=== PATIENT | male | born 1965 | race Caucasian/White ===

== ENCOUNTER 2019-12-09 11:06 | Observation (INO) | payer OTHER, SELFPAY ==
--- NOTE | 2019-12-09 11:32 | RAD ---
EXAM: CHEST ONE VIEW HISTORY: Dyspnea. Patient fell a popping sensation in head and the left side of face went numb. COMPARISON: None FINDINGS: The cardiac silhouette and pulmonary vasculature are within normal limits. The lungs are clear. The o sseous structures are intact. IMPRESSION: No acute cardiopulmonary process.
[2019-12-09 11:40] LABS: #Basophils 0.1 thou/uL (0.0-0.2); #Eosinphils 0.2 thou/uL (0.0-0.7); #Lymphocytes 1.6 thou/uL (1.20-3.40); #Monocytes 0.6 thou/uL (0.11-0.59); #Neutrophils 3.5 thou/uL (1.40-6.50); %Basophils 1.1 % (0.0-1.0); %Eosinophils 3.2 % (0.0-10.0); %Lymphocytes 27.4 % (21.0-51.0); %Monocytes 9.2 % (0.0-10.0); %Neutrophils 59.1 % (42.0-75.0); Hemoglobin 14.3 g/dL (14.0-18.0); Mean Corpuscular HGB CONC 32.9 g/dL (32.0-36.0); Mean Corpuscular Hemoglobin 29.4 pg (27.0-31.0); Mean Corpuscular Volume 89.3 fL (78.0-98.0); Mean Platelet Volume 7.8 fL (7.4-10.4); Platelet Count 223 thou/uL (130-400); Red Blood Cell (RBC) Count 4.87 mill/uL (4.70-6.10)
--- NOTE | 2019-12-09 12:03 | CT ---
CT BRAIN WITHOUT CONTRAST: HISTORY: Headache, left-sided facial numbness FINDINGS: No evidence of acute infarct, hemorrhage, midline shift or abnormal extra-axial fluid collections is seen. The ventricular size is appropriate and the basilar cisterns are patent. The bony calvarium is intact. The mastoid air cells are well aerated. There is mucosal disease in the left ethmoid sinus es. IMPRESSION: No CT evidence of acute intracranial process.
[2019-12-09] MEDS ORDERED: Acetaminophen 500 MG TAB ONE (12:07)
[2019-12-09] MEDS ORDERED: Metoclopramide HCl 10 MG/2 ML VIAL ONE (12:08)
[2019-12-09] MEDS ORDERED: diphenhydrAMINE 50 MG/ML VIAL ONE (12:08)
[2019-12-09 13:10] LABS: ALT (SGPT) 36 U/L (8-55); AST (SGOT) 24 U/L (5-34); Albumin 3.9 g/dL (3.5-5.0); Alkaline Phosphatase 58 U/L (40-110); Anion Gap 15 mmol/L (10-20); BUN (Urea Nitrogen) 24 mg/dL (8.4-25.7); Bilirubin, Total 0.5 mg/dL (0.2-1.2); Calc. Creatinine Clearance 0 mL/min (70-130); Calcium 8.8 mg/dL (7.8-10.44); Carbon Dioxide 21 mmol/L (22-29); Chloride 103 mmol/L (98-107); Estimated GFR-MDRD 60; Globulin 3.1 g/dL (2.4-3.5); Glucose 268 mg/dL (70-105); Potassium 4.3 mmol/L (3.5-5.1); Sodium 135 mmol/L (136-145)
[2019-12-09 15:08] VITALS: BMI 32.3
[2019-12-09] MEDS ORDERED: hydrALAZINE 20 MG/ML VIAL SLOW IVP PRN (15:53)
[2019-12-09] MEDS ORDERED: HumaLOG 300 UNITS/3 ML VIAL SC PRN (15:54)
[2019-12-09] MEDS ORDERED: Dextrose 50% Abboject 50 ML SYRINGE SLOW IVP PRN (15:54)
[2019-12-09] MEDS ORDERED: Dextrose 5% in Water 1,000 ML IV PRN (15:54)
--- NOTE | 2019-12-09 16:47 | ULT ---
ULTRASOUND DOPPLER DUPLEX CAROTID: DATE: 12/09/2019 HISTORY: 54-year-old male with TIA TECHNIQUE: Grayscale, color-flow, and spectral analysis, of major arteries of neck. FINDINGS: RIGHT: Atherosclerotic plaque:Mild at carotid bulb. Peak systolic and end diastolic velocities: CCA:90 cm/s, 20 cm/s ICA:65 cm/s, 20 cm/s ICA/CCA ratio:0.8 Vertebral artery flow:Antegrade LEFT: Atherosclerotic plaque:Mild at carotid bulb. Peak systolic and end diastolic velocities: CCA:85 cm/s, 15 cm/s ICA:65 cm/s, 25 cm/s ICA/CCA ratio:0.7 Vertebral artery flow:Antegrade IMPRESSION: 1) mild atherosclerosis of bilateral proximal internal carotid arteries. 2. No evidence of hemodynamically significant stenosis.
[2019-12-09] MEDS: metFORMIN 500 MG TAB PO SCH (17:52)
[2019-12-09] MEDS ORDERED: Atorvastatin Calcium 40 MG TAB PO SCH (21:00)
--- NOTE | 2019-12-09 22:38 | HP ---
CHIEF COMPLAINT: Left facial numbness. HISTORY OF PRESENT ILLNESS: The patient is a 54-year-old male, with past medical history of hypertension, hyperlipidemia, and diabetes mellitus, who has been out of his blood pressure medications for the past week. He presented to the hospital after a sudden onset of left facial numbness earlier today. The patient stated that he heard a loud pop in his head and then felt numbness over the left side of his face that lasted about 50 minutes. EMS was called, and the patient was brought to the ER and his systolic blood pressure was over 200. He denies any weakness, numbness, speech difficulty, or vision abnormalities at this time. CT scan of the brain without contrast obtained in the ER did not show any abnormalities. REVIEW OF SYSTEMS: Negative, except as noted in HPI. PAST MEDICAL HISTORY: As noted above. SURGICAL HISTORY: Includes ablation for tachycardia. SOCIAL HISTORY: The patient is a current smoker, but denies alcohol or illicit drug use. ALLERGIES: THE PATIENT IS ALLERGIC TO IODINE. PHYSICAL EXAMINATION: GENERAL: The patient is alert and oriented x3. HEENT: Head is normocephalic and atraumatic. Extraocular muscles are intact. NECK: Supple. CHEST: Clear to auscultation bilaterally CARDIOVASCULAR EXAMINATION: Reveals normal S1, S2. No murmurs, rubs, or gallops. Regular rate and rhythm. ABDOMEN: Soft, nontender, and nondistended. NEUROLOGIC EXAMINATION: Revealed normal cranial nerves 2 through 12 and normal motor and sensory function. ASSESSMENT: 1. Transient ischemic attack. 2. Hypertensive urgency. 3. Diabetes mellitus, type 2. 4. Hyperlipidemia. PLAN: The patient will be placed in neuro telemetry. Start aspirin 325 mg orally daily and atorvastatin 40 mg orally nightly. We will allow permissive hypertension and treat with IV hydralazine 10 mg q.4 hours as needed for systolic blood pressure greater than 220 or diastolic greater than 120. Check lipid profile and hemoglobin A1c. Start low insulin lispro sliding scale for diabetes. The patient takes metformin at home, which we will continue. Lovenox for DVT prophylaxis. We will check echocardiogram and ultrasound of the carotid and we will consult Neurology. No evidence of any deficits at this time, so I will leave the decision to pursue MRI to the neurologist. Job ID: [id number]
[2019-12-10 04:26] LABS: #Basophils 0.1 thou/uL (0.0-0.2); #Eosinphils 0.3 thou/uL (0.0-0.7); #Monocytes 1.1 thou/uL (0.11-0.59); #Neutrophils 5.4 thou/uL (1.40-6.50); %Basophils 1.1 % (0.0-1.0); %Eosinophils 2.7 % (0.0-10.0); %Lymphocytes 30.2 % (21.0-51.0); %Monocytes 10.9 % (0.0-10.0); %Neutrophils 55.1 % (42.0-75.0); Hemoglobin 14.6 g/dL (14.0-18.0); Mean Corpuscular HGB CONC 33.5 g/dL (32.0-36.0); Mean Corpuscular Volume 89.6 fL (78.0-98.0); Mean Platelet Volume 7.7 fL (7.4-10.4); Platelet Count 227 thou/uL (130-400); RBC Distribution Width 12.1 % (11.5-14.5); Red Blood Cell (RBC) Count 4.87 mill/uL (4.70-6.10); White Blood Cell (WBC) Count 9.8 thou/uL (4.8-10.8)
[2019-12-10 05:34] LABS: Hemoglobin A1c 7.8 % (4.0-6.0)
[2019-12-10 05:41] LABS: Anion Gap 14 mmol/L (10-20); BUN (Urea Nitrogen) 17 mg/dL (8.4-25.7); Calc. Creatinine Clearance 116 mL/min (70-130); Calcium 8.8 mg/dL (7.8-10.44); Carbon Dioxide 20 mmol/L (22-29); Cardiac Risk 5.9 (Less than 4.5); Chloride 106 mmol/L (98-107); Cholesterol 147 mg/dl (< 200 Desired); Estimated GFR-MDRD 69; Glucose 156 mg/dL (70-105); HDL Cholesterol 25 mg/dL (>60 Neg Risk); LDL Cholesterol, Calculated 73 mg/dL; Potassium 3.7 mmol/L (3.5-5.1); Sodium 136 mmol/L (136-145); Triglycerides 243 mg/dL (Less than 150)
[2019-12-10] MEDS ORDERED: Aspirin 325 mg Enteric Coated Tablet PO SCH (09:00)
[2019-12-10] MEDS ORDERED: FLU VACC QS2020-21(6MOS UP)/PF 60 MCG/0.5 ML SYRINGE IM ONE (09:00)
[2019-12-10] MEDS ORDERED: Magnevist 469MG/ML 20 ML VIAL ONE (09:00)
[2019-12-10] MEDS ORDERED: Enoxaparin Sodium 40 MG/0.4 ML SYRINGE SC SCH (09:00)
[2019-12-10] MEDS: metFORMIN 500 MG TAB PO SCH (09:13)
--- NOTE | 2019-12-10 11:43 | CON ---
NEUROLOGY CONSULTATION DATE OF CONSULTATION: 12/10/2019 REASON FOR CONSULTATION: Transient ischemic attack. HISTORY OF PRESENT ILLNESS: Mr. Marcelo Medina is a 54-year-old male with medical history significant for hypertension, hyperlipidemia, diabetes, presented to the emergency room with left facial numbness. Per patient, he has been out of his blood pressure medicine for 5 days because there was some confusion with the prescription and came to the emergency room because he was at work when he felt his left side of his face became numb, and he heard a loud pop in his head. The episode lasted for about 15 minutes. EMS were called and he was brought to the emergency room with a systolic blood pressure was over 200. The patient denies any focal weakness, focal paresthesias, nausea, vomiting, headache, chest pain, abdominal pain, problem with vision, swallowing or speech. Head CT was done in the emergency room, which was negative for acute intracranial pathology. He was admitted for stroke workup. He was given aspirin and was admitted for stroke workup. REVIEW OF SYSTEMS: All 14 systems were reviewed and were negative except the pertinent positive and negative mentioned in the HPI. PAST MEDICAL HISTORY: Hypertension, hyperlipidemia, and diabetes mellitus. PAST SURGICAL HISTORY: Ablation for tachycardia. SOCIAL HISTORY: The patient is a smoker. He denies alcohol or illegal drug use. ALLERGIES: IODINE. PHYSICAL EXAMINATION: VITAL SIGNS: Blood pressure 171/104 , pulse 80, and respiratory rate 18. CVS: Regular rate and rhythm. CHEST: Clear. ABDOMEN: Soft. NECK: Supple. NEUROLOGICAL: Mental status, the patient is alert and oriented to person, place, and time. Recent and remote memory intact. Fund of knowledge is appropriate. Speech is clear. Cranial nerves 2 through 12 intact. Motor, muscle tone and bulk are normal. Strength 5/5 bilaterally. Sensory intact. Gait deferred due to patient's safety reason. DATA REVIEWED: I reviewed the head CT which was negative for acute intracranial pathology. MRI reviewed and was negative for acute intracranial pathology. ASSESSMENT AND PLAN: Mr. Marcelo Medina is a 54-year-old male with history significant for hypertension, hyperlipidemia, and diabetes, presented with an episode of left facial numbness, which resolved on its own, most likely transient ischemic attack in the setting of hypertensive emergency. MRI of the brain to rule out acute intracranial process reviewed and was negative for acute intracranial pathology.. Continue aspirin and high-intensity statin for secondary stroke prevention. Permissive control of blood pressure at this time. Strict control of blood glucose. Check hemoglobin A1c, fasting lipid profile, and TSH. Telemetry to rule out arrhythmia. 2D echo did not reveal any thrombus or PFO. Carotid Dopplers to check for hemodynamically significant stenosis is negative. Neuro checks every 4 hours. Continue home medications. PT/OT. Continue medical management per primary team. Discussed in detail with the patient and also during MDR rounds. Thank you for the consult. Job ID: [id number] JERONIMO
[2019-12-10 11:48] VITALS: BP 171/104; TEMP 98.2
[2019-12-10 11:56] LABS: SARS-CoV-2 MS2 Positive; SARS-CoV-2 N Gene Negative; SARS-CoV-2 S Gene Negative; SARS-CoV-2 by NAA Not Detected (NotDetected); SARS-CoV-2 orf1ab Negative
--- NOTE | 2019-12-10 14:00 | MRI ---
MRI BRAIN WITH AND WITHOUT CONTRAST: Date: 12/10/2019 INDICATION: Seizure. Assess for stroke. FINDINGS: Ventricles have normal size and position. No evidence of restricted diffusion. No evidence of acute i nfarct. No evidence of mass or edema. There is periventricular white matter intensities consistent wi th mild chronic ischemic white matter change. No abnormal enhancement. Hippocampal formations appear symmetric on the coronal FLAIR sequence. The intracranial internal carotid arteries and cerebral arteries demonstrate flow-voids. Mucosal edema in the right maxillary sinus is noted. IMPRESSION: 1. Mild chronic ischemic white matter change. 2. No evidence of acute infarct or other acute process. POS: MIKAL
[2019-12-10] MEDS ORDERED: Lisinopril 20 MG TAB PO SCH (14:45)
[2019-12-10] MEDS ORDERED: Hydrochlorothiazide 25 MG TAB PO SCH (14:45)
--- NOTE | 2019-12-11 03:29 | DIS ---
DATE OF ADMISSION: 12/09/2019 DATE OF DISCHARGE: 12/10/2019 DISCHARGE DIAGNOSES: 1. Transient ischemic attack secondarily to #2. 2. Hypertension, labile. 3. Hyperlipidemia. 4. Diabetes mellitus type 2. CONSULTATIONS: Dr. Carrillo with Neurology Service. PERTINENT LABORATORY AND X-RAY FINDINGS: Hemoglobin A1c 7.8, total cholesterol 147, triglycerides 243, HDL 25, LDL 73. CBC within normal limits. COVID-19 PCR not detected, 12/09/2019. CT of the brain without contrast dated 12/09/2019, showed no acute intracranial process. Portable chest x-ray dated 12/09/2019, showed no acute cardiopulmonary process. Carotid Doppler study dated 12/09/2019, showed no hemodynamically significant stenosis. MRI of the brain dated 12/10/2019, showed no acute intracranial process. 2D transthoracic echocardiogram dated 12/10/2019, showed ejection fraction of 55% to 60%. Diastolic dysfunction noted. HOSPITAL COURSE: The patient was observed on the stroke unit after initially presenting with left facial paresthesias and numbness with associated uncontrolled hypertension. The patient underwent general stroke protocol with essentially negative findings. The patient was resumed on his regular outpatient blood pressure regimen with overall clinical stabilization. The patient was evaluated by the Neurology Service with recommendations for risk factor modification and control of the blood pressure. I have examined the patient at the time of discharge and discussed followup instructions. The patient verbalizes understanding and agreement, ready for discharge on 12/10/2019. DISCHARGE MEDICATIONS: 1. Lipitor 40 mg p.o. daily. 2. Glipizide 10 mg p.o. b.i.d. 3. Metformin 1000 mg p.o. b.i.d. 4. Hydrochlorothiazide 25 mg p.o. daily. 5. Lisinopril 40 mg p.o. daily. 6. Metoprolol tartrate 25 mg p.o. b.i.d. 7. Enteric-coated aspirin 81 mg p.o. daily. FOLLOWUP: The patient may follow up with his primary care provider, Dr. Blade Gardiner in [place], [place]. CONDITION ON DISCHARGE: Stable. ACTIVITY: Ad-avelino. DIET: Heart healthy and ADA. CODE STATUS: Full. DISPOSITION: To home, 12/10/2019. Job ID: [id number]
[2019-12-11] MEDS ORDERED: FLU VACC QS2020-21(6MOS UP)/PF 60 MCG/0.5 ML SYRINGE IM ONE (08:30)
--- NOTE | 2019-12-20 13:01 | EKG ---
Test Reason : Blood Pressure : / mmHG Vent. Rate : 086 BPM Atrial Rate : 086 BPM P-R Int : 240 ms QRS Dur : 086 ms QT Int : 380 ms P-R-T Axes : 048 036 041 degrees QTc Int : 454 ms Sinus rhythm with 1st degree A-V block Low voltage QRS Borderline ECG Confirmed by MARBELLA KESSLER, ZORAIDA ([id number]), news editor GILLIAN OTT ([id number]) on 12/20/2019 1:00:47 PM Referred By: SHARER Confirmed By:ZORAIDA TYSON MD
== END 2019-12-10 15:24 | disposition home or self-care (01) ==
LOC: ERS 11:06 → 2SE 14:03
PROVIDERS: ADMIT Internal Medicine; ATTEND Internal Medicine
DX: G45.9 Transient cerebral ischemic attack, unspecified (principal); I16.0 Hypertensive urgency; I10 Essential (primary) hypertension; E11.9 Type 2 diabetes mellitus without complications; E78.5 Hyperlipidemia, unspecified; E78.00 Pure hypercholesterolemia, unspecified; F17.290 Nicotine dependence, other tobacco product, uncomplicated; Z79.82 Long term (current) use of aspirin; Z79.84 Long term (current) use of oral hypoglycemic drugs; Z79.899 Other long term (current) drug therapy; Z20.828 Contact with and (suspected) exposure to other viral communicable diseases; Z88.8 Allergy status to other drugs, medicaments and biological substances
CPT/HCPCS: 36415; 36416; 70450; 70553; 71045; 80048; 80053; 80061; 83036; 84484; 85025; 87635; 90471; 90662; 90732; 93005; 93306; 93880; 96361; 96365; 96372; 96375; A9579; G0008; G0009; G0378; J1200; J1650; J2765; U0003